=== PATIENT | male | born 1975 | race Caucasian/White ===

== ENCOUNTER → 2016-03-31 | Outpatient (CLI) | payer BC | LOC: PT 03-29 13:22 ==

== ENCOUNTER 2016-04-05 08:55 | Outpatient (RCR) | payer BC | END 2016-05-21 09:54 | disposition home or self-care (01) | LOC: PT 08:55 | DX: Z47.89 Encounter for other orthopedic aftercare (principal) ==

== ENCOUNTER → 2022-04-27 | Outpatient (CLI) | payer BC | LOC: RAD 11:32 | DX: M19.072 Primary osteoarthritis, left ankle and foot (principal) ==